=== PATIENT | male | born 1975 | race Caucasian/White ===

== ENCOUNTER 2021-09-25 19:06 | Emergency (ER) | payer OTHER ==
[2021-09-25] MEDS ORDERED: Sodium Chloride 0.9% 10 ML Syringe FLUSH PRN (19:53)
[2021-09-25 20:29] VITALS: BP 118/83; PULSE 108
[2021-09-25] MEDS ORDERED: Lidocaine 1% with EPINEPHrine 1:100,000 10 ML MDV INJECT ONE (21:22)
[2021-09-25] MEDS ORDERED: Lidocaine 1% 10 ML MDV INJECT ONE (21:26)
[2021-09-25] MEDS ORDERED: Sulfamethoxazole/Trimethoprim 800-160 MG Tab PO ONE (22:42)
[2021-09-25] MEDS ORDERED: Clindamycin HCl 150 MG Cap PO ONE (22:43)
== END 2021-09-25 23:50 | disposition home or self-care (01) ==
LOC: JD.ED 19:06
DX: M71.121 Other infective bursitis, right elbow (principal); Z72.0 Tobacco use
CPT/HCPCS: 20605; 36415; 73080; 80053; 84550; 85025; 86140; 87040; 99283; A9270; J3490

== ENCOUNTER 2022-08-01 11:20 | Day surgery (SDC) | payer OTHER ==
[2022-08-01] MEDS ORDERED: Lidocaine 1%/Sod Bicarbonate in NS 8.4% 1 ML Syringe IDERM PRN (12:12)
[2022-08-01] MEDS ORDERED: Sodium Chloride 0.9% 10 ML Syringe FLUSH PRN (12:12)
[2022-08-01] MEDS ORDERED: Lactated Ringers 1,000 ML IV SCH (12:15)
[2022-08-01] MEDS ORDERED: Propofol 200 MG/20 ML SDV ONE ×2 (13:41)
[2022-08-01 15:21] VITALS: BP 120/78; PULSE 88
[2022-08-01] MEDS ORDERED: Sodium Chloride 0.9% 10 ML Syringe FLUSH SCH (21:00)
== END 2022-08-01 15:17 | disposition home or self-care (01) ==
LOC: JD.SDS 11:20
PROVIDERS: ATTEND Surgery
DX: K31.89 Other diseases of stomach and duodenum (principal); K31.A0 Gastric intestinal metaplasia, unspecified; K29.70 Gastritis, unspecified, without bleeding; K31.7 Polyp of stomach and duodenum; K44.9 Diaphragmatic hernia without obstruction or gangrene; K62.1 Rectal polyp; Q43.8 Other specified congenital malformations of intestine; K64.8 Other hemorrhoids; K22.70 Barrett's esophagus without dysplasia; G47.33 Obstructive sleep apnea (adult) (pediatric); F32.A Depression, unspecified; E78.5 Hyperlipidemia, unspecified; F41.8 Other specified anxiety disorders; Z98.890 Other specified postprocedural states; Z79.899 Other long term (current) drug therapy; Z87.891 Personal history of nicotine dependence; Z91.018 Allergy to other foods; Z88.6 Allergy status to analgesic agent
CPT/HCPCS: J2704; J3490; J7120

== ENCOUNTER 2023-10-08 09:50 | Emergency (ER) | payer OTHER ==
[2023-10-08] MEDS: Dexamethasone 4 MG/ML 5 ML MDV PO ONE (11:07)
[2023-10-08 11:17] VITALS: BP 117/87; PULSE 80
== END 2023-10-08 11:13 | disposition home or self-care (01) ==
LOC: JD.ED 09:50
DX: J32.8 Other chronic sinusitis (principal); J45.909 Unspecified asthma, uncomplicated; E78.00 Pure hypercholesterolemia, unspecified; F17.210 Nicotine dependence, cigarettes, uncomplicated; Z79.899 Other long term (current) drug therapy; Z88.6 Allergy status to analgesic agent; Z91.018 Allergy to other foods
CPT/HCPCS: 99283; 99284; J8540